=== PATIENT | female | born 1935 | race Caucasian/White ===

== ENCOUNTER 2022-03-24 10:02 | Emergency (ER) | payer OTHER, MEDICARE ==
[2022-03-24 10:24] VITALS: BP 160/75; PULSE 82; TEMP 99.1; BMI 32.5
== END 2022-03-24 11:16 | disposition home or self-care (01) ==
LOC: FER 10:02
DX: R60.9 Edema, unspecified (principal)
CPT/HCPCS: 93970-TC; 99283-25